=== PATIENT | female | born 1960 | race Caucasian/White ===

== ENCOUNTER 2025-01-10 13:51 | Outpatient (CLI) | payer BC ==
[~2025-01-10] VITALS: Ht 160 cm; Wt 52.2 kg
[2025-01-10 14:38] LABS: TOTAL HEMOGLOBIN 15.8 G/dl (12.0-16.0)
[2025-01-10 15:02] VITALS: PULSE 91; RESP 18; O2SAT 98
[2025-01-10] MEDS: levalbuterol 0.63mg/3ml nebule IH ONE (15:47)
[2025-01-10 16:11] VITALS: PULSE 94; RESP 18
--- NOTE | 2025-01-14 14:03 | PROCEDURE NOTE - Respiratory ---
Procedure Note-Respiratory Providers to Copies To 1: PEDRO JOHNSON MD Procedure Name: This is a complete pulmonary function study dated January 10, 2025. Hemoglobin measurement was done as part of the study. There was also a room air blood gas obtained from this patient. Spirometry measurements: Both the forced vital capacity and the FEV1 are in the normal range. The FEV1 ratio is normal. The flow rate measurements are normal. After inhaled bronchodilator was administered, there is no appreciable change in the flow volume curve. Lung volume measurements: The total lung capacity is normal. The residual volume is somewhat elevated. The functional residual capacity measurement is normal. Lung diffusion measurement: The DLCO measurement is normal. The alveolar volume measurement is normal. The KVO is normal. It is noted that the hemoglobin measurement is in the normal range. Airway resistance measurement: The airway resistance is normal. Conclusion: Normal pulmonary function study. The patient's asthma appears to be under good control on the current bronchodilator medication. We have no previous studies for comparison. A blood gas was drawn from this patient while the patient was breathing ambient air. The blood pH is mildly alkalotic. The pCO2 is slightly reduced. This suggests a mild respiratory alkalosis. There is borderline room air hypoxemia with the room air PO2 measuring at 76 mmHg. PEDRO JOHNSON MD Jan 14, 2025 14:03
== END 2025-01-10 23:59 | disposition home or self-care (01) ==
LOC: RT 13:51
PROVIDERS: ATTEND Internal Medicine Pulmonary Disease
DX: J45.998 Other asthma (principal)
CPT/HCPCS: 85018; 94060; 94727; 94729; 94760; J7614